=== PATIENT | male | born 1940 | race Caucasian/White ===

== ENCOUNTER 2016-12-25 14:37 | Inpatient (IN) ==
[2016-12-25 15:36] LABS: MANUAL DIFF NEEDED? NO
[2016-12-25 15:38] LABS: BASO% 0.2 % (0.0-0.8); EOS# 0.26 X1000 (0.0-0.7); EOS% 2.1 % (0.0-10.0); HEMATOCRIT 44.5 % (42.0-52.0); HEMOGLOBIN 15.5 g/dL (14.0-18.0); IMM GRAN# 0.03 X1000 (0.0-0.04); IMM GRAN% 0.2 % (0.0-0.5); LYMPH# 4.33 X1000 (1.2-3.4); LYMPH% 35.7 % (20.5-51.1); MCH 31.1 PG (27-31); MCHC 34.8 g/dL (33-37); MCV 89.4 FL (81-99); MONO# 1.29 X1000 (0.11-0.59); MONO% 10.6 % (1.7-9.3); MPV 9.6 FL (7.4-10.4); NEUT% 51.2 % (42.2-75.2); PLT 253 X1000 (130-400); RBC 4.98 XMIL (4.7-6.1)
[2016-12-25 15:46] LABS: ALLEN TEST YES; BLOOD TYPE ARTERIAL; DRAW SITE L RADIAL; METHB 1.3 % (0.0-1.5); O2(CT) 20.8 mL/dL (15.0-23.0); PCO2(98.6) 40 mmHg (35-45); PO2(98.6) 82 mmHg (60-100); SAMPLE BLOOD; SAO2 97.7 % (95.0-100.0); THB 15.8 g/dL (11.5-17.4)
[2016-12-25 15:47] LABS: MODALITY ROOM AIR
[2016-12-25 15:54] LABS: INR 1.08; PROTIME 11.4 Seconds (9.2-11.7); PTT 29.2 Seconds (22.0-36.0)
--- NOTE | 2016-12-25 15:54 | Diag Imaging Result Doc PS360 ---
EXAM: CT HEAD W/O CONTRAST TECHNIQUE: Dose reduction protocol was used. INDICATION: AMS COMPARISON: 02/24/2016 FINDINGS: There is stable mild diffuse brain atrophy. There is no definite acute infarct given the limited sensitivity of CT versus MRI. There is no discrete intracranial mass, mass effect, or intracranial hemorrhage. The surrounding soft tissues and bony structures are essentially unremarkable. IMPRESSION: Stable brain atrophy but no evidence of acute intracranial pathology. Electronically signed by Joshua Pizano 12/25/2016 3:51 PM
--- NOTE | 2016-12-25 15:55 | Diag Imaging Result Doc PS360 ---
EXAM: CHEST-PORTABLE INDICATION: AMS TECHNIQUE: One view COMPARISON: 05/29/2015 FINDINGS: There is stable elevation of the right hemidiaphragm. There are stable metallic fragments projecting of the lower chest wall on the right. The lungs are grossly clear. There is no discrete pleural fluid collection or pneumothorax. There are stable CABG changes. The cardiomediastinal silhouette and central vasculature are grossly unremarkable, otherwise IMPRESSION: No evidence of acute pathology by plain radiograph. Electronically signed by Joshua Pizano 12/25/2016 3:53 PM
[2016-12-25 16:00] LABS: AGAP 15; ALBUMIN 4.4 g/dL (3.5-5.0); ALKALINE PHOSPHATASE 56 U/L (32-122); BUN 20 mg/dL (8-22); CHLORIDE 101 mmol/L (98-107); CK PROFILE 88 U/L (24-204); COSMO 278; GOT 16 U/L (10-34); GPT 16 U/L (10-44); MAGNESIUM 2.3 mg/dL (1.5-2.7); POTASSIUM 4.8 mmol/L (3.5-5.1); SODIUM 138 mmol/L (136-145); TCO2 22 mmol/L (25-35); TOTAL PROTEIN 7.2 g/dL (6.3-8.3)
[2016-12-25 16:50] LABS: URINE CULTURE NEEDED? NO; URINE MICRO REVIEW NEEDED? NO; URINE SOURCE CLEAN CATCH
[2016-12-25 16:55] LABS: BILIRUBIN URINE NEGATIVE (NEGATIVE); BLOOD URINE NEGATIVE (NEGATIVE); COLOR YELLOW; GLUCOSE URINE NEGATIVE (NEGATIVE); LEUKOCYTES URINE NEGATIVE (NEGATIVE); NITRITE URINE NEGATIVE (NEGATIVE); PH URINE 5.5; PROTEIN URINE NEGATIVE (NEGATIVE); SP GRAVITY URINE 1.016; TURBIDITY URINE CLEAR (CLEAR); UROBILINOGEN URINE NORMAL (NORMAL)
[2016-12-25 16:57] LABS: UR EPITHELIAL CELLS <10 /HPF (<10); URINE BACTERIA NEGATIVE /HPF; URINE RBC <10 /HPF (<10); URINE WBC <10 /HPF (<10)
--- NOTE | 2016-12-25 17:05 | PROVIDER DOCUMENTATION ---
HPI-Neurological Disorder - General Chief Complaint: Stroke-Like Symptoms Stated Complaint: STROKE LIKE SX Time Seen by Provider: 12/25/16 15:02 Source: patient, family Allergies/Adverse Reactions: Patient Allergies Allergy/AdvReac Type Severity Reaction Status Date / Time Penicillins Allergy Severe ANAPHYLAXIS Verified 04/09/13 09:45 Home Medications: Home Medication List Medication Instructions Recorded Confirmed Last Taken Type Aspirin 81 mg PO DAILY 04/09/13 04/09/13 04/08/13 13:00 History 1 Ergocalciferol (Vitamin D2) 500 unit PO DAILY 04/09/13 04/09/13 04/08/13 08:00 History [Vitamin D] 1 Hydrocodone/Acetaminophen [Lortab 1 each PO PRN PRN 04/09/13 04/09/13 04/08/13 15:00 History 7.5-500 Tablet] 1 Meloxicam [Mobic] 15 mg PO DAILY 04/09/13 04/09/13 04/08/13 19:00 History 1 Omeprazole [Prilosec] 20 mg PO DAILY@0700 04/09/13 04/09/13 03/28/13 08:00 History 1 Ranolazine E.r. [Ranexa] 500 mg PO DAILY 04/09/13 04/09/13 04/08/13 08:00 History 1 Tamsulosin [Flomax] 0.4 mg PO QHS 04/09/13 04/09/13 04/08/13 19:00 History 1 - History of Present Illness-Neuro Nature of Presenting Problem: Reports one episode of confusion w/o focal weakness 2AM Tuesday morning, which was 37 hours ago. Pt went to sleep and work up 4.5 hours later, reports blurry vision and progressively worsened to double vision since yesterday morning. Denies REAL/LOC/focal weakness/N/V. Pt's bought a eye patch for him before came in to ER to avoid the double vision. Called an [employer] Re[employer] Operator and was instructed to come to ER for CVA eval. Severity: reports: moderate, severe Onset/Duration: reports: gradual, other (37 hours ago) Timing: reports: still present Context: denies: low blood sugar, recent/heavy alcohol intake, drug abuse, head injury, recent infection, impaired speech, facial droop, seizure activity Character of Altered Mental Status: reports: confused. denies: agitated, trouble concentrating, unresponsive, seizure activity Any recent trauma/injury?: reports: none Character of Deficits: reports: vision problem/glaucoma. denies: new weakness, impaired speech, impaired swallowing Cognitive Baseline: alert, oriented x3 Gait Baseline: walks without assistance Associated Symptoms: reports: denies symptoms, short of breath, headache. denies: fainting, dizziness, confusion, fatigue, fever/chills, insomnia, loss of consciousness, nausea, numbness in legs/feet Similar Symptoms Previously?: No Recently seen or treated by another doctor?: No Review of Systems - Adult - REVIEW OF SYSTEMS - ADULT Constitutional: reports: no symptoms reported Eyes: reports: no symptoms reported Ears, Nose, Mouth & Throat: reports: no symptoms reported Cardiovascular: reports: no symptoms reported. denies: chest pain Respiratory: reports: no symptoms reported. denies: chronic cough Gastrointestinal: reports: no symptoms reported. denies: abdominal pain Genitourinary: reports: no symptoms reported Musculoskeletal: reports: no symptoms reported. denies: bone pain Integumentary: reports: no symptoms reported Neurological: reports: see HPI, paresthesia. denies: headache/migraines, seizure, slurred speech, syncope, tremors, other Psychiatric: reports: see HPI. denies: anti-depressant use, alcohol/drug dependence, emotional problems, insomnia, panic attacks, suicidal thoughts Endocrine: reports: no symptoms reported Hematologic/Lymphatic: reports: no symptoms reported Allergic/Immunologic: reports: no symptoms reported All Other Systems: Reviewed and Negative Past History - Adult - PAST MEDICAL HISTORY-ADULT Review of Records: reports: Old Records Reviewed, Nursing Assessment Review, Medications Reviewed, Social history reviewed & non-contributory. - FAMILY HISTORY Family History: reviewed, not pertinent - SOCIAL HISTORY Smoking: denies Substance Use: none/never Alcohol Use Frequency: never Physical Exam- Neurological - Physical Exam-Neuro Initial Vital Signs Reviewed: Yes General Appearance: appears well, alert, no apparent distress Eye Exam: bilateral eye: normal inspection, PERRL, EOMI HENMT: normocephalic/atraumatic, moist mucous membranes Head Injury: no evidence of injury, active bleeding Neck: non-tender, full range of motion, supple Respiratory: chest non-tender, lungs clear, normal breath sounds, no pleuratic chest pain, no respiratory distress, no accessory muscle use Cardiovascular: normal peripheral pulses, regular rate, rhythm Abdominal Exam: normal bowel sounds, non tender, soft, no organomegaly Extremity: normal range of motion, non-tender, normal gait, normal inspection, 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: normal hearing, normal speech, PERRL Coordination/Gait: normal finger to nose, normal gait Motor/Sensory: no motor deficit, no sensory deficit, no pronator drift Neurologic: no motor/sensory deficits Integumentary: normal color, normal turgor, warm/dry Psych/Mental Status: normal mood/affect, normal thought content, normal thought process, oriented x 3 - Glascow Coma Scale Best Eye Response: (4) open spontaneously Best Verbal Response: (5) oriented Best Motor Response: (6) obeys commands Total Glascow Score: 15 Progress - PLAN OF CARE/RESULTS Progress/Plan/Lab Results: Vital Signs - 8 hr 12/25/16 14:55 Temperature 97.8 F Pulse Rate 55 L Respiratory Rate 18 Blood Pressure 126/61 O2 Sat by Pulse Oximetry 99 Laboratory Results - last 24 hr 12/25/16 12/25/16 12/25/16 15:15 15:23 15:23 WBC 12.13 H RBC 4.98 Hgb 15.5 Hct 44.5 MCV 89.4 MCH 31.1 H MCHC 34.8 RDW Std Deviation 12.8 Plt Count 253 MPV 9.6 Immature Gran % (Auto) 0.2 Neut % (Auto) 51.2 Lymph % (Auto) 35.7 [place] % (Auto) 10.6 H Eos % (Auto) 2.1 Baso % (Auto) 0.2 Immature Gran # (Auto) 0.03 Neut # (Auto) 6.20 Lymph # (Auto) 4.33 H [place] # (Auto) 1.29 H Eos # (Auto) 0.26 Baso # (Auto) 0.02 PT INR PTT (Actin FS) Specimen Type Sample Site pH pCO2 pO2 HCO3 Base Excess Oxyhemoglobin ABG O2 Sat (Calculated) ABG O2 Saturation ABG Carboxyhemoglobin ABG Methemoglobin Ramon Test A-a O2 Difference Total Hemoglobin Lactate Blood Gas Modality FiO2 % Sodium Potassium Chloride Carbon Dioxide Anion Gap BUN Creatinine Estimated GFR/1.73 m2 BUN/Creatinine Ratio Glucose POC Glucose 97 Calculated Osmolality Calcium Magnesium Total Bilirubin AST ALT Alkaline Phosphatase Creatine Kinase Troponin T [id number] Pept Total Protein Albumin Globulin Albumin/Globulin Ratio Urine Source Urine Color Urine Turbidity Urine pH Ur Specific [place] Urine Protein Ur Glucose (Stick) Ur Ketones (Stick) Urine Blood Urine Nitrite Urine Bilirubin Urobilinogen Dipstick Urine Leukocytes Urine WBC (Auto) Urine RBC (Auto) U Epithel Cells (Auto) Urine Bacteria (Auto) Plasma/Serum Ethyl Alc 12/25/16 12/25/16 12/25/16 15:23 15:23 15:23 WBC RBC Hgb Hct MCV MCH MCHC RDW Std Deviation Plt Count MPV Immature Gran % (Auto) Neut % (Auto) Lymph % (Auto) [place] % (Auto) Eos % (Auto) Baso % (Auto) Immature Gran # (Auto) Neut # (Auto) Lymph # (Auto) [place] # (Auto) Eos # (Auto) Baso # (Auto) PT 11.4 INR 1.08 PTT (Actin FS) 29.2 Specimen Type Sample Site pH pCO2 pO2 HCO3 Base Excess Oxyhemoglobin ABG O2 Sat (Calculated) ABG O2 Saturation ABG Carboxyhemoglobin ABG Methemoglobin Ramon Test A-a O2 Difference Total Hemoglobin Lactate Blood Gas Modality FiO2 % Sodium 138 Potassium 4.8 Chloride 101 Carbon Dioxide 22 L Anion Gap 15 BUN 20 Creatinine 1.1 Estimated GFR/1.73 m2 > 60 BUN/Creatinine Ratio 18 Glucose 100 POC Glucose Calculated Osmolality 278 Calcium 9.0 Magnesium 2.3 Total Bilirubin 0.40 AST 16 ALT 16 Alkaline Phosphatase 56 Creatine Kinase 88 Troponin T [id number]-Ulcrdcujvez Pept 65 Total Protein 7.2 Albumin 4.4 Globulin 2.8 Albumin/Globulin Ratio 1.6 Urine Source Urine Color Urine Turbidity Urine pH Ur Specific [place] Urine Protein Ur Glucose (Stick) Ur Ketones (Stick) Urine Blood Urine Nitrite Urine Bilirubin Urobilinogen Dipstick Urine Leukocytes Urine WBC (Auto) Urine RBC (Auto) U Epithel Cells (Auto) Urine Bacteria (Auto) Plasma/Serum Ethyl Alc 12/25/16 12/25/16 12/25/16 15:23 15:31 16:00 WBC RBC Hgb Hct MCV MCH MCHC RDW Std Deviation Plt Count MPV Immature Gran % (Auto) Neut % (Auto) Lymph % (Auto) [place] % (Auto) Eos % (Auto) Baso % (Auto) Immature Gran # (Auto) Neut # (Auto) Lymph # (Auto) [place] # (Auto) Eos # (Auto) Baso # (Auto) PT INR PTT (Actin FS) Specimen Type ARTERIAL Sample Site L RADIAL pH 7.40 pCO2 40 pO2 82 HCO3 24.8 Base Excess 0.0 Oxyhemoglobin 93.6 L ABG O2 Sat (Calculated) 20.8 ABG O2 Saturation 97.7 ABG Carboxyhemoglobin 2.90 H ABG Methemoglobin 1.3 Ramon Test YES A-a O2 Difference 18.0 Total Hemoglobin 15.8 Lactate 1.30 Blood Gas Modality ROOM AIR FiO2 % 21.0 Sodium Potassium Chloride Carbon Dioxide Anion Gap BUN Creatinine Estimated GFR/1.73 m2 BUN/Creatinine Ratio Glucose POC Glucose Calculated Osmolality Calcium Magnesium Total Bilirubin AST ALT Alkaline Phosphatase Creatine Kinase Troponin T < 0.010 Mmr-C-Mwfkxpalzph Pept Total Protein Albumin Globulin Albumin/Globulin Ratio Urine Source CLEAN CATCH Urine Color YELLOW Urine Turbidity CLEAR Urine pH 5.5 Ur Specific [place] 1.016 Urine Protein NEGATIVE Ur Glucose (Stick) NEGATIVE Ur Ketones (Stick) NEGATIVE Urine Blood NEGATIVE Urine Nitrite NEGATIVE Urine Bilirubin NEGATIVE Urobilinogen Dipstick NORMAL Urine Leukocytes NEGATIVE Urine WBC (Auto) <10 Urine RBC (Auto) <10 U Epithel Cells (Auto) <10 Urine Bacteria (Auto) NEGATIVE Plasma/Serum Ethyl Alc Orders Category Date Time Status Cardiac Monitoring DIRECTED Care 12/25/16 15:04 Active Finger Stick Blood Sugar (ED) DIRECTED Care 12/25/16 15:04 Active Saline Loc NOW Care 12/25/16 15:04 Active CHEST-PORTABLE [RAD] Stat Exams 12/25/16 15:[address] HEAD W/O CONTRAST [CT] Stat Exams 12/25/16 15:05 Completed ABG [RESP] Routine Lab 12/25/16 15:31 Completed ALCOHOL BLOOD Stat Lab 12/25/16 15:23 Completed BLOOD CULTURE [BLDCUL] Stat Lab 12/25/16 16:55 Uncollected CBC WITH ELECTRONIC DIFF [HEME] Stat Lab 12/25/16 15:23 Completed CK PROFILE [SP CHEM] Stat Lab 12/25/16 15:23 Completed COMPREHENSIVE METABOLIC PANEL [CHEM] Stat Lab 12/25/16 15:23 Completed MAGNESIUM [CHEM] Stat Lab 12/25/16 15:23 Completed PRO B-NATRIURETIC PEPTIDE Stat Lab 12/25/16 15:23 Completed PROTIME WITH INR [COAG] Stat Lab 12/25/16 15:23 Completed PTT [COAG] Stat Lab 12/25/16 15:23 Completed TROPONIN T Stat Lab 12/25/16 15:23 Completed URINALYSIS W/POSS RFLX CULT-1 [URINALYSIS] Stat Lab 12/25/16 16:00 Completed URINE DRUG SCREEN Stat Lab 12/25/16 16:00 Received Pulse Oximetry Stat Oth 12/25/16 15:04 Completed EKG [EKG] Stat Ther 12/25/16 14:59 Ordered Result Diagrams: 12/25/16 15:23 12/25/16 15:23 - XRAY 1 XRAY Study: Chest Impression: Normal - CT/MRI 1 CT Study: Head Impression: Normal - CONSULTS/PCP/HOSPITALIST Notification #1 *Consult/PCP/Hospitalist*: Dr. Perry/Mary Time Discussed: 17:09 Consult Disposition: Will see in ED, Admit Departure - Departure Date of Disposition Decision: 12/25/16 Time of Disposition Decision: 17:09 DIAGNOSIS: CVA (cerebral vascular accident), Double vision Disposition: ADMITTED INPATIENT 09 Certified Medical Emergency: Emergent Condition: Stable Referrals and Follow-Ups: Joshua Ayala MD [Primary Care Provider] - - Critical Care Note This patient required my direct & personal management of CC.: No Attestation - Physician/ CHUY Attestation Patient care was provided by Advanced Practice Provider:: No The physician spent face to face time with patient:: Yes Advanced Practice Provider documentation review:: Supervising physician onsite and consulted in the evaluation and care of this patient. The physician did have a face to face encounter with the patient.
[2016-12-25 17:26] LABS: UR AMPHETAMINES QUAL NONE DETECTED (NONE DETECT); UR BARBITUATES QUAL NONE DETECTED (NONE DETECT); UR BENZODIAZEPIN QUAL NONE DETECTED (NONE DETECT); UR CANNABINOIDS QUAL NONE DETECTED (NONE DETECT); UR COCAINE QUAL NONE DETECTED (NONE DETECT); UR METHADONE QUAL NONE DETECTED (NONE DETECT); UR OPIATES QUAL PRESUMPTIVE POSITIVE (NONE DETECT); UR OXYCODONE QUAL NONE DETECTED (NONE DETECT); UR PCP QUAL NONE DETECTED (NONE DETECT)
[2016-12-25] MEDS ORDERED: TYLENOL PO PRN (20:31)
[2016-12-25] MEDS ORDERED: ZOFRAN IV PRN (20:31)
[2016-12-25] MEDS ORDERED: NS 1,000 ML IV SCH (20:31)
--- NOTE | 2016-12-25 21:14 | HISTORY AND PHYSICAL ---
PRIMARY CARE PROVIDER: Dr. Joshua Ayala. PRIMARY UROLOGIST: Dr. Felix. PRIMARY HEMATOLOGY ONCOLOGIST: Dr. Vasquez. PRIMARY RHEUMATOID PHYSICIAN: Dr. Tamez. CHIEF COMPLAINT: Double vision, vertical double vision and altered confusion. HISTORY OF PRESENT ILLNESS: Mr. Joshua Dasilva is a 76-year-old male with a medical history of hypertension, coronary artery disease requiring CABG, right hemidiaphragm requiring p.r.n. 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 He also states that urinary incontinence tends to be normal for him secondary to history of bladder cancer which he is now on remission for. Later on that day around 9 a.m. he was watching television and noticed that he has had some double vision but not the usual double vision someone would have it was vertical double vision where images were above each other. He told his and at that time she wanted him to come to the ER but instead they ended up calling the [employer]maker [employer] who recommended him coming to the ER. He let the symptoms of the double vision go 1 more night and then proceeded to come to ER today as the symptoms did not go away. Head CT is negative. Chest x-ray is negative. He does have a slightly elevated white blood cell count but he is afebrile. Urinalysis negative. He is able to call out number of fingers in his peripheral vision, there is no vision loss although he still has double vision that is vertical in nature. He has got equal strength in all extremities. He has a mildly unstable gait but he uses a cane for ambulation as he has a history of a left leg torn tendon that happened last year. Will admit to the medical floor, will order carotid ultrasound, echocardiogram, neurology consult and do IV fluid hydration for now and MRI for Tuesday morning. PAST MEDICAL HISTORY: Hypertension, bladder cancer in 2009 and now on remission, MGUS and he gets followed up for that every [address] Becdach, osteoarthritis, right hemidiaphragm requiring p.r.n. 3 L nasal cannula, GERD, coronary artery disease with CABG twice, hyperlipidemia, he also has a left leg torn tendon uses a cane. Of note approximately 1 month ago he had seen Dr. Cortes his animal control supervisor as outpatient who then called in and had his Pravachol increased from 40-80 mg and Norvasc at 5 mg. Apparently his heart rate was hitting the 40s, he was having more diarrhea and severe cramps so the patient a week ago took himself off his Pravachol and his Norvasc and states that the diarrhea, the abdominal cramps and his heart rate went back to normal and the states that they called Dr. Cortes's office to inform him of this medication change. SURGICAL HISTORY: CABG x4 in 1997, re op sternotomy with CABG x2 in 2014, he gets a cystoscopy every 6 months, he has had a bladder tumor removal, he has a cataract surgery x2 and a right knee repair. SOCIAL HISTORY: Quit smoking 1997 after his 1st coronary bypass prior that he smoked a half pack per day for 40 years. Denies alcohol or illicit drug use and he is a , lives at home with his . FAMILY HISTORY: Arthritis is in the family, his mother at the age of 92 but had a history of breast cancer and bone cancer, father was an alcoholic and had throat cancer, his paternal grandfather had prostate cancer, his maternal grandfather had lung cancer and his grandmother had a stroke. REVIEW OF SYSTEMS: Fourteen point review of systems were complete and all were negative for those mentioned above HPI. ALLERGIES: Penicillin. HOME MEDICATIONS: Xanax 0.25 p.o. t.i.d. p.r.n., Plavix 75 mg p.o. daily, [place] 5 one tab p.o. t.i.d. p.r.n., Mobic 50 mg p.o. daily p.r.n., Toprol-XL 50 mg p.o. daily, Ranexa a 1000 mg p.o. twice daily, Flomax 0.4 mg p.o. nightly, Ultram 50 mg p.o. t.i.d. p.r.n., Effexor XR 37.5 mg p.o. daily. PHYSICAL EXAMINATION: VITAL SIGNS: Temperature is 97.8 degrees, heart rate is 52, respiratory rate 18, blood pressure 141/61, O2 saturation 99% on room air, he is 6 feet 0 inches tall, 216 pounds, BMI 29.3. GENERAL: Mr. Joshua Dasilva is a 76-year-old male, he is in no acute distress. He is able answer questions appropriately. HEENT: Atraumatic, normocephalic. Pupils equal, round, reactive to light. Extraocular movements intact. Vertical double vision noted which improves with a patch over 1 eye, mucous membranes are dry. NECK: No JVD or carotid bruits noted. CARDIOVASCULAR: S1, S2 with occasional irregular beat, is regular rate and rhythm. No rubs, gallops, murmurs. PULMONARY: Clear to auscultate, bilateral breath sounds. No accessory muscle use or work of breathing noted. GI: Soft, nontender, nondistended, positive bowel sounds x4. EXTREMITIES: Neck no edema noted, +2 dorsalis and radial pulses. Moves all extremities equally. NEUROLOGIC: Oriented x4. Moves all extremities equally. Tongue midline. Pupils are equal. Strength is equal in all extremities. No sensation changes in all extremities or facial, face is symmetric. SKIN: Warm, dry, intact. There is a small little small scalp laceration on the left side of the scalp and the patient is unsure of how he got this. LABORATORY DATA: White blood cells 12,000, hemoglobin 15, hematocrit 44, platelet count 253,000, INR 1.08. ABGs pH 7.4, pCO2 40, PO2 82, bicarb 24, base excess 0, saturation 93.6%, carboxyhemoglobin 2.9 although patient states that he does not smoke any more. Lactate 1.3, this is on room air. Sodium 138, potassium 4.8, BUN 20, creatinine 1.1, glucose is 100, calcium 9.0, magnesium 2.3, bilirubin 0.4, AST 16, ALT 16, CK 88, troponin less than 0.01, proBNP 65. Urinalysis negative. Urine drug screen positive for opiates. Alcohol level 0. IMAGING: Chest x-ray no acute findings. Head CT, stable brain atrophy, no evidence of acute intracranial pathology. ASSESSMENT AND PLAN: 1. Vertical double vision. Will rule out for stroke, will also check thyroid function. Another possible symptom could be myasthenia gravis, will consult neurology for further work up. 2. Rule out transient ischemic attack or stroke. Will follow carotid ultrasound and echocardiogram and on Tuesday will have an MRI of the brain and will do aspirin, will continue home Plavix and his statin and frequent neuro checks. 3. Hypertension. There is some bradycardia so I will decrease his Toprol from 50-25 daily, will allow for some permissive hypertension. 4. Monoclonal gammopathy of unknown significance, he has followed up with Dr. Vasquez every 3 months but usually causes a chronic elevated white blood cell count which is at 12,000, right now he is afebrile. 5. Leukocytosis, blood cultures obtained, chest x-ray is clear, urinalysis clear, no antibiotics for now. 6. Osteoarthritis. Continue home pain medication regimen. 7. Right hemidiaphragm, p.r.n. 3 L nasal cannula as needed. 8. Gastroesophageal reflux disease, continue proton pump inhibitor. 9. Acute coronary artery disease. Continue with beta braulio, statin and Plavix and aspirin. 10. Hyperlipidemia, continue statin just a lower dose than previously ordered. 11. Deep venous thrombosis prophylaxis SCDs and he is on Plavix. 12. Gastrointestinal prophylaxis proton pump inhibitors. I have personally performed a face to face diagnostic evaluation on this patient , also I reviewed this patient lab work and, images and vital signs, Likely this patient has a posterior fossa stroke, we will wait for images and involve Dr Yoo on his care, for now aspirin, statins, blood pressure control , Dr Benjie Andrea Dictated by AMALIA Duarte for Benjie Shah MD cc: MD Benjie Montemayor MD [facility]
[2016-12-25] MEDS: XANAX PO PRN (23:01)
[2016-12-25] MEDS: FLOMAX PO SCH (23:01)
[2016-12-25] MEDS: RANEXA PO SCH (23:01)
[2016-12-25] MEDS: LIPITOR PO SCH (23:01)
[2016-12-26 06:46] LABS: MANUAL DIFF NEEDED? NO
[2016-12-26 06:55] LABS: BASO% 0.2 % (0.0-0.8); EOS% 4.1 % (0.0-10.0); HEMATOCRIT 42.9 % (42.0-52.0); HEMOGLOBIN 14.8 g/dL (14.0-18.0); IMM GRAN# 0.02 X1000 (0.0-0.04); IMM GRAN% 0.2 % (0.0-0.5); LYMPH# 3.74 X1000 (1.2-3.4); LYMPH% 38.5 % (20.5-51.1); MCH 31.1 PG (27-31); MCHC 34.5 g/dL (33-37); MCV 90.1 FL (81-99); MONO% 10.3 % (1.7-9.3); MPV 9.7 FL (7.4-10.4); NEUT% 46.7 % (42.2-75.2); PLT 222 X1000 (130-400); RBC 4.76 XMIL (4.7-6.1)
[2016-12-26 07:02] LABS: INR 1.05; PROTIME 11.1 Seconds (9.2-11.7); PTT 22.7 Seconds (22.0-36.0)
[2016-12-26 07:06] LABS: HEMOGLOBIN A1C 5.8 % (4.8-6.0)
[2016-12-26 07:19] LABS: AGAP 11; ALBUMIN 3.9 g/dL (3.5-5.0); ALKALINE PHOSPHATASE 50 U/L (32-122); BUN 19 mg/dL (8-22); CALCIUM 8.9 mg/dL (8.8-10.2); CHLORIDE 102 mmol/L (98-107); COSMO 278; GOT 14 U/L (10-34); GPT 14 U/L (10-44); POTASSIUM 4.2 mmol/L (3.5-5.1); SODIUM 138 mmol/L (136-145); TCO2 25 mmol/L (25-35); TOTAL BILIRUBIN 0.35 mg/dL (0.20-1.00); TOTAL PROTEIN 6.8 g/dL (6.3-8.3)
[2016-12-26 08:05] LABS: FREE T4 1.16 ng/dL (0.93-1.70); VITAMIN D 25 HYDROXY 21.7 NG/DL
[2016-12-26] MEDS: EFFEXOR XR PO SCH (08:31)
[2016-12-26] MEDS: RANEXA PO SCH ×2 (08:32→20:46)
[2016-12-26] MEDS: TOPROL XL PO SCH (08:33)
[2016-12-26] MEDS: ASPIRIN PO SCH (08:33)
[2016-12-26] MEDS: PLAVIX PO SCH (08:33)
--- NOTE | 2016-12-26 11:53 | PROGRESS NOTE ---
DATE: 12/26/2016 SUBJECTIVE: This patient states that he is still having double vision, but compared with the first day and yesterday, it is a little bit better. The plan is to go ahead and get an MRI and MRA of the head and neck, and a Neurology consult. This patient is stable. We will continue to monitor. OBJECTIVE: Vital Signs: Temperature 97.3, pulse 58, respiratory rate 16, blood pressure 150/64, oxygen saturation 99 on room air. HEENT: Head normocephalic. No trauma. PERRLA. Peripheral vision is stable. Neck: Supple. No JVD. No masses. Central trachea. Chest: Clear to auscultation. No wheezing. No rales. Abdomen: Soft, nontender, nondistended. No hepatosplenomegaly. Extremities: No edema. No clubbing. No cyanosis. Neurological: The patient is alert and oriented x3. He is complaining of double vision, vertical. No focal motor deficits. LABORATORY STUDIES: WBC 9.7, hemoglobin 14.8, hematocrit 42.9, platelets 222,000. Sodium 138, potassium 4.2, chloride 102, bicarbonate 25, BUN 19, creatinine 1, glucose 98. Hemoglobin A1c 5.8. Calcium 8.9. ASSESSMENT AND PLAN: 1. Possible posterior fossa stroke, pending MRI and MRA of the head and neck. We will continue to monitor. This patient feels a little bit better compared with the previous days. Neurology has been consulted for further workup. This patient is on aspirin, Plavix, statins. Will continue with the same management. 2. Hypertension, stable. Continue with the same management. 3. Bradycardia. Toprol has been decreased from 50-25 daily, secondary to his bradycardia. He has been running in the 50s. We will continue to monitor. 4. Monoclonal gammopathy of unknown significance. He has been followed up with Dr. Vasquez every 3 months. Aware. 5. Leukocytosis. Blood cultures have been obtained, and they have been negative so far. Today, his leukocyte count is normal. 6. History of coronary artery disease. Continue with beta braulio, statin, Plavix, and aspirin. 7. Deep vein thrombosis prophylaxis, with sequential compression devices, and of course, he is on Plavix and aspirin. 8. Gastrointestinal prophylaxis. Continue with proton pump inhibitor. cc: Benjie Shah MD
[2016-12-26] MEDS: NORCO-5 PO PRN ×2 (12:27→20:46)
[2016-12-26] MEDS: XANAX PO PRN ×2 (12:27→20:48)
--- NOTE | 2016-12-26 16:37 | ECHO REPORT ---
ORDER DATE: 12/26/2016 ECHOCARDIOGRAM: INDICATION: Stroke-like symptoms. FINDINGS: 1. Right atrium is normal size. 2. Mild tricuspid regurgitation. RV systolic pressure of 37. 3. Normal RV size and systolic function. 4. Mild pulmonic insufficiency. 5. Mild left atrial enlargement at 4.1 cm. 6. No mitral valve prolapse. Mild mitral regurgitation. 7. Normal LV size, end-diastolic dimension of 5.5. Normal wall thicknesses with a posterior and interventricular septal wall thickness 1 cm each. Normal LV systolic function. The estimated EF is 65% with normal wall motion. 8. Aortic valve opens well although it does appear somewhat sclerotic. There does not appear to be any significant gradient across the valve. No evidence of aortic insufficiency. 9. Aorta appears somewhat dilated at the root with a dimension of 4.2 cm. 10. No pericardial effusion seen. cc: MD Aurora Hussein CRNP
[2016-12-26] MEDS: LIPITOR PO SCH (20:46)
[2016-12-26] MEDS: FLOMAX PO SCH (20:48)
[2016-12-27] MEDS: NORCO-5 PO PRN ×2 (04:57→17:09)
[2016-12-27] MEDS: XANAX PO PRN ×3 (04:57→22:12)
--- NOTE | 2016-12-27 06:06 | Diag Imaging Result Doc PS360 ---
EXAM: CT HEAD W/O CONTRAST HISTORY: stroke like systems TECHNIQUE: CT brain without contrast. Dose reduction protocol. COMPARISON: 12/25/2016 FINDINGS: No parenchymal hemorrhage. No epidural or subdural hematoma. No subarachnoid hemorrhage. No mass identified on this noncontrasted exam. No hydrocephalus. Mild atrophy. Old right cerebellar lacunar infarct. Small chronic appearing ischemic areas in the right parietal and occipital lobes. No sinus opacification. IMPRESSION: No hemorrhage. No change. A preliminary report was given at 2:47 AM Electronically signed by Sterling Duran 12/27/2016 6:04 AM
--- NOTE | 2016-12-27 06:31 | EKG Report ---
Test Performed on : 12/27/2016 01:41:37 AM Test Reason : stroke like symptoms Blood Pressure : / mmHG Vent. Rate : 060 BPM Atrial Rate : 060 BPM P-R Int : 198 ms QRS Dur : 088 ms QT Int : 432 ms P-R-T Axes : 036 038 051 degrees QTc Int : 432 ms Sinus rhythm. with premature atrial complexes. Otherwise normal ECG When compared with ECG of 25-DEC-2016 15:00, (Unconfirmed) premature atrial complexes. are now present Non-specific change in ST segment in Inferior leads Nonspecific T wave abnormality now evident in Inferior leads Confirmed by Colten Mendez DO ([id number]) on 12/30/2016 5:00:38 PM
[2016-12-27 06:55] LABS: MANUAL DIFF NEEDED? NO
[2016-12-27 07:33] LABS: AGAP 11; BUN 17 mg/dL (8-22); CALCIUM 8.8 mg/dL (8.8-10.2); CHLORIDE 101 mmol/L (98-107); COSMO 281; POTASSIUM 4.2 mmol/L (3.5-5.1); SODIUM 140 mmol/L (136-145); TCO2 28 mmol/L (25-35)
[2016-12-27 07:58] LABS: BASO% 0.2 % (0.0-0.8); EOS# 0.42 X1000 (0.0-0.7); EOS% 3.7 % (0.0-10.0); HEMATOCRIT 41.9 % (42.0-52.0); HEMOGLOBIN 14.5 g/dL (14.0-18.0); IMM GRAN# 0.04 X1000 (0.0-0.04); IMM GRAN% 0.4 % (0.0-0.5); LYMPH% 30.1 % (20.5-51.1); MCH 31.2 PG (27-31); MCHC 34.6 g/dL (33-37); MCV 90.1 FL (81-99); MONO# 1.16 X1000 (0.11-0.59); MONO% 10.3 % (1.7-9.3); MPV 9.7 FL (7.4-10.4); NEUT% 55.3 % (42.2-75.2); PLT 222 X1000 (130-400); RBC 4.65 XMIL (4.7-6.1)
--- NOTE | 2016-12-27 10:27 | Diag Imaging Result Doc PS360 ---
EXAM: MRI BRAIN W W/O CONTRAST HISTORY: stroke TECHNIQUE: Axial, sagittal, and coronal images obtained in multiple sequences. These are followed the post contrasted axial and coronal images. COMPARISON: None. FINDINGS: No recent infarct. There are minimal microvascular ischemic changes. There is mild atrophy. Old lacunar infarct in the right cerebellum. No mass or midline shift. No enhancing lesion on the postcontrast images. No epidural or subdural fluid collection. IMPRESSION: Mild atrophy with minimal microvascular ischemic changes, but no recent infarct. Electronically signed by Sterling Duran 12/27/2016 10:24 AM
--- NOTE | 2016-12-27 10:28 | Diag Imaging Result Doc PS360 ---
EXAM: MRA BRAIN W/O CONTRAST HISTORY: stroke TECHNIQUE: MR angiography of campo of [place]. MIP images obtained. COMPARISON: None. FINDINGS: There is normal flow in each distal internal carotid artery. Normal filling of each anterior cerebral artery and each middle cerebral artery. There is normal flow in the basilar artery and posterior cerebral arteries. There is a dominant communicating artery on the right and the posterior cerebral artery appears to receive the majority of its flow from the communicating artery. There is a smaller communicating artery on the left. These are normal variants. No occlusion or stenosis identified. No aneurysm. IMPRESSION: Normal MR angiography of the campo of House. Electronically signed by Sterling Duran 12/27/2016 10:26 AM
--- NOTE | 2016-12-27 10:30 | Diag Imaging Result Doc PS360 ---
EXAM: MRA NECK W/CONT HISTORY: r/o posterior cva TECHNIQUE: MR angiography of the carotid arteries. MIP images obtained. COMPARISON: None. FINDINGS: There is normal flow within each common carotid artery. No stenosis. Minimal narrowing of each carotid bulb of less than 40%. Otherwise there is normal flow in the proximal and mid internal carotid arteries. There is normal flow in the left vertebral artery. The right vertebral artery is not identified. IMPRESSION: No significant stenosis within either common carotid artery or within either internal carotid artery. Electronically signed by Sterling Duran 12/27/2016 10:28 AM
[2016-12-27] MEDS ORDERED: VITAMIN D PO SCH (11:15)
[2016-12-27] MEDS: ASPIRIN PO SCH (11:38)
[2016-12-27] MEDS: TOPROL XL PO SCH (11:38)
[2016-12-27] MEDS: RANEXA PO SCH ×2 (11:38→22:07)
[2016-12-27] MEDS: EFFEXOR XR PO SCH (11:38)
[2016-12-27] MEDS: PLAVIX PO SCH (11:38)
[2016-12-27] MEDS: ULTRAM PO PRN ×2 (11:46→22:12)
[2016-12-27] MEDS: FOLIC ACID PO SCH (11:58)
--- NOTE | 2016-12-27 19:28 | PROGRESS NOTE ---
DATE: 12/27/2016 SUBJECTIVE: The patient is resting comfortably in bed. He states that he still sees double vision out of his left eye right now. He has a eye patch on his left eye. OBJECTIVE: Vital Signs: Temperature 98 degrees, blood pressure 150/63, heart rate 75, respirations 14, O2 saturations 99% on room air. General: This is an elderly male lying in bed in no acute distress. Head: Normocephalic, atraumatic. Heart: S1, S2. Normal. Regular rate and rhythm. Lungs: Clear to auscultation bilaterally. No wheezes, no rales, no rhonchi. Abdomen: Positive bowel sounds. Soft, nontender, nondistended. Extremities: No edema. No cyanosis. No calf tenderness. Neurological: Patient is alert and oriented x3. Positive diplopia, strength 5/5 in both the upper and lower extremities. The patient's gait was not tested. LABS: White blood cell count 11, hemoglobin 14, hematocrit 41, platelets 222,000. Sodium 140, potassium 4.2, chloride 101, CO2 28, BUN 17, creatinine 0.9, glucose 105, folate 7.4, vitamin D level 21.7. ASSESSMENT AND PLAN: 1. Transient ischemic attack versus acute cerebrovascular accident. The patient's MRIs are negative. Also the patient's echocardiogram is unremarkable. The carotid duplex study is currently pending. The patient has been seen by Dr. Yoo. We will continue on Plavix and Lipitor which was added yesterday. Physical therapy has been consulted. 2. Vertigo. Will start the patient on p.r.n. meclizine. 3. Folate deficiency. Continue on folic acid replacement. 4. Vitamin D deficiency. Will start the patient on vitamin D replacement. 5. Coronary artery disease. Continue on the current cardiac medications. 6. Peripheral vascular disease. Aware. 7. Dyslipidemia. The patient has been started on Lipitor. 8. Disposition. Will plan to discharge the patient home tomorrow. cc: June Piper MD
--- NOTE | 2016-12-27 20:26 | CONSULTATION ---
DATE OF CONSULTATION: 12/27/2016 HISTORY OF PRESENT ILLNESS: Mr. Dasilva is 76 years old and he had recent onset of vertical diplopia, possible associated vertigo and unsteady gait today. History from the patient is that he woke from sleep three nights ago noticing a small amount of urinary incontinence and very brief confusion. Confusion resolved within 30 seconds. He got up, got cleaned up, got back to bed and slept for several hours. Later that morning, 3 days ago, he noted vertical diplopia which has persisted since then. This has not improved or deteriorated. When he covers either eye, diplopia resolves. He had not previously noticed gaze in one direction to change the diplopia, but during the interview and examination this morning, he does now report upgaze is associated with less vertical diplopia than downgaze. There was never blindness or focal loss of visual field. He developed some headache, which he attributed to keeping his left eye shut voluntarily so that he could see single. There was never any other headache. There was not slurred speech, gait difficulty worse than baseline, focal neurologic problem, facial asymmetry. That situation persisted until early hours this morning when he noticed looking overhead while supine in bed that the ceiling tiles appeared to be moving. When he got up this morning, his gait was more unsteady than baseline. Still, he has not noticed definite focal feature. There is no other new deficit this morning. PAST HISTORY: Remarkable for hypertension, ischemic heart disease, CABG, bladder cancer, MGUS. He had recently changed metoprolol dose. He had recently doubled his statin dose and then stopped that because of adverse effects. Neither of these changes was immediately before onset of current symptoms. Workup here includes initial noncontrast CT of the head and then repeat noncontrast CT early this morning and these are unremarkable, showing typical microvascular ischemic changes and no interval change. Brain MRI with and without contrast this morning is reported to show mild atrophy and minimal microvascular ischemic change but no evidence of recent infarction. Brain and cervical MRA are reported unremarkable today. LAB WORK: Includes urine drug screen positive for opiates, consistent with his home medicines including p.r.n. hydrocodone. There is elevated triglyceride level at 262 and total cholesterol 147 is within normal range. Blood sugars have been very mildly elevated on a few occasions. Nothing else remarkable in the chemistry profile. He has been afebrile. His blood pressures were 120 to 140s the first several hours after admission, mostly 150s to 190s since then. He has been afebrile. Heart rate has been mostly in the 50s. On examination, he is awake, alert, attentive, appropriate, oriented. Speech is not dysarthric. Language function is intact. Memory is good. Head and neck are unremarkable. Visual ramirez are full, tested by confrontational finger counting. Extraocular movements are full to confrontation. He reports vertical diplopia, and with cover/uncover testing this consistently resolves with covering either eye. The pattern is consistent with weakness in a depressor of the left eye. Facial sensation and motility are symmetric. There is no ptosis. Gag is intact. Tongue is midline. He can hear. Shoulder shrug is equal. Strength is normal in the arms and legs. He did well on [id number] testing bilaterally. He had very slight difficulty with heel-to- taylor testing bilaterally. Gait is wide based, but also antalgic. He is more steady using the single prong walking cane which has been his baseline since foot injury. Proprioception is normal at the great toe MTP joint bilaterally. He reports good pinprick appreciation over the feet and lower legs. Reflexes are 1+ symmetrically at the ankles and at the wrists. Plantar response is silent bilaterally. IMPRESSION: 1. Persistent vertical diplopia. 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 Possibilities are ischemic mono neuropathy involving 4th or 3rd nerve, brainstem lesion not apparent on imaging, neuromuscular problems including myasthenia, ocular myopathy. 2. He has some vertigo today. There seem to be clear positional features. This may be labyrinthopathy, but in light of his recent diplopia and his cerebrovascular risk factors, we need to make sure there is not brain stem lesion. 3. Unsteady gait, onset this morning with vertigo. This may be due to the vertigo. He does have very slight difficulty with [id number], but I do not find any other cerebellar deficit. In light of his stable course, negative imaging reports and clinical features, I do not think we have to do anything further on an urgent basis from a neurologic standpoint. I discussed permissive hypertension with him, but with negative workup, I do not think we have to allow that. I would continue hydration, treat his cerebrovascular risk factors aggressively , advised him to be careful with gait and activities while he is unsteady and consider an Ophthalmology referral. Trial with meclizine to see if that helps his vertigo symptomatically would be reasonable. Thanks for asking me to see Mr. Dasilva. cc: Aleksandra Yoo III, MD MTDD
[2016-12-27] MEDS: LIPITOR PO SCH (22:08)
[2016-12-27] MEDS: FLOMAX PO SCH (22:08)
[2016-12-28 07:06] LABS: CALCIUM 9.5 mg/dL (8.8-10.2); POTASSIUM 4.5 mmol/L (3.5-5.1)
[2016-12-28] MEDS: EFFEXOR XR PO SCH (08:00)
[2016-12-28] MEDS: TOPROL XL PO SCH (08:00)
[2016-12-28] MEDS: ASPIRIN PO SCH (08:00)
[2016-12-28] MEDS: FOLIC ACID PO SCH (08:00)
[2016-12-28] MEDS: PLAVIX PO SCH (08:00)
[2016-12-28] MEDS: RANEXA PO SCH (08:00)
[2016-12-28] MEDS: XANAX PO PRN (08:00)
[2016-12-28 12:13] VITALS: BP 126/63
--- NOTE | 2016-12-31 08:39 | Carotid Study ---
DATE: 12/26/2016 PROCEDURE: Carotid duplex imaging. REFERRING PHYSICIAN: Benjie Shah MD. INTERPRETING PHYSICIAN: Jose Garcia MD. TECH: [place]. INDICATIONS: Visual changes. Comparison study is on 02/24/2016. OBSERVED DATA RIGHT LEFT Brachial Blood Pressure Carotid Pulse Bruits: Carotid/Sub DIAGRAM OF ULTRASOUND IMAGING R L RIGHT INT EXT INT EXT LEFT Chava (cm/s) Chava (cm/s) Subclavian 119/0 Subclavian 117/0 CCA Proximal 123/7 CCA Proximal 95/12 CCA Distal 96/13 CCA Distal 93/10 Bulb 82/9 Bulb 105/16 ICA Proximal 97/20 ICA Proximal 127/15 ICA Mid 134/23 ICA Mid 100/19 ICA Distal 110/17 ICA Distal 69/16 ECA 158/6 ECA 136/4 Vertebral 46/11 Vertebral 57/14 ICA/CCA Ratio 1.1 ICA/CCA Ratio 1.3 % Stenosis 40-59 % Stenosis 40-59 FINDINGS: There is a fairly smooth-appearing plaque in the mid right internal carotid artery and again shallow, irregular plaque at the takeoff of the left internal carotid artery. INTERPRETATION: There is some plaque disease in both internal carotid arteries. Neither produce a stenosis of any hemodynamic significance. The plaque and velocities on the right are new, but again not hemodynamically significant at this point. cc: MD Aurora Elam CRNP
--- NOTE | 2017-01-06 08:53 | DISCHARGE SUMMARY ---
ADMISSION DATE: 12/25/2016 DISCHARGE DATE: 12/28/2016 PRIMARY CARE PHYSICIAN: Joshua Ayala MD FINAL DISCHARGE DIAGNOSES: 1. Transient ischemic attack. 2. Vertigo. 3. Folate deficiency. 4. Vitamin D deficiency. 5. Coronary artery disease. 6. Peripheral vascular disease. 7. Dyslipidemia. CONSULTATIONS REQUESTED DURING THIS HOSPITAL STAY: Neurology consultation with Dr. Yoo. HOSPITAL COURSE: Mr. Dasilva is a 76-year-old male with a history of coronary artery disease and hypertension, who presented to the ER with double vision and some confusion. There was concern about a possible stroke so the patient was admitted to the hospitalist service and neurology was consulted. The patient underwent an MRI of the brain that was noted to be negative for stroke. The patient also had a carotid Doppler study done that revealed some plaque in both internal carotid arteries, but there were no hemodynamically significant lesions noted. The patient was also seen by the neurologist, who recommended that the patient continue with his current antiplatelet regimen and Lipitor was also added. A 2-dimensional echocardiogram was done that revealed an ejection fraction of 65%. The patient continued to improve clinically and was cleared for discharge on 12/28/2016. It was also recommended that the patient followup with Dr. Lissette Ledbetter for an eye exam. DISCHARGE MEDICATIONS: 1. Aspirin 81 mg p.o. daily. 2. Lipitor 40 mg p.o. at bedtime. 3. Folic acid 1 mg p.o. daily. 4. Metoprolol extended release 25 mg p.o. daily. 5. Vitamin D2 77674 units oral every 7 days. 6. Ranexa 1000 mg oral twice a day. 7. Flomax 0.4 mg p.o. at bedtime. 8. Xanax 0.25 mg p.o. 3 times a day p.r.n. 9. Tramadol 50 mg p.o. 3 times a day p.r.n. 10. Effexor XR 37.5 mg p.o. daily. 11. Mcdermitt 5/325, one tab oral 3 times a day, p.r.n. for pain. 12. Plavix 75 mg p.o. daily. DISCHARGE DIET: Low-sodium, low-cholesterol diet. ACTIVITY: As tolerated. FOLLOWUP INSTRUCTIONS: The patient will need to followup with in 1 week. The patient will also need to followup with Dr. Yoo as scheduled by his clinic. The patient will need to followup with Dr. Ayala in 2 weeks. cc: MD Joshua Toscano MD [facility]ENTERArley
== END 2016-12-28 13:00 | disposition home or self-care (01) ==
LOC: ED 14:37 → SUATTDRO 20:22 → 3N 20:22
PROVIDERS: ATTEND Internal Medicine